=== PATIENT | male | born 1960 | race Caucasian/White ===

== ENCOUNTER 2022-07-14 09:57 | Outpatient (CLI) | payer BC, SELFPAY ==
[2022-07-14 10:03] VITALS: PULSE 100; RESP 16; TEMP 36.8; O2SAT 95; BMI 30.7
--- NOTE | 2022-07-14 10:15 | ED.GENADULT ---
HPI - General Adult General Chief complaint: Ear/Nose/Throat Problem Stated complaint: Foreign object in throat Time Seen by Provider: 07/14/22 10:06 History of Present Illness HPI narrative: This 62-year-old male comes in reporting an inability to swallow since last night. He ate some meat and feels that the food is stuck down at the bottom of his esophagus. Since then he has been spitting up saliva. He has attempted to push this through by swallowing hard but was unsuccessful. He states that he has not had an episode quite like this in the past but has had some dyspepsia a and reflux symptoms previously. Related Data Home Medications Medication Instructions Recorded Confirmed atorvastatin 40 mg tablet mg 07/14/22 Allergies Allergy/AdvReac Type Severity Reaction Status Date / Time No Known Drug Allergies Allergy Verified 07/14/22 10:05 Review of Systems Status of ROS: Reports: 10 or more systems reviewed and unremarkable except as noted in History and below Narrative: Constitutional: No fevers, no weight gain or loss. Eyes: No discharge. No vision changes. HENT: No congestion, no sore throat, no ear pain. Cardiovascular: No chest pain, no palpitations. Respiratory: No shortness of breath, no wheezes, no cough. Gastrointestinal: No abdominal pain, no diarrhea. Unable to swallow and frequently spitting up saliva. Genitourinary: No dysuria, no hematuria. Musculoskeletal: Normal range of motion. Skin: No rashes, no pruritis. Neurological: No dizziness, weakness, sensory change, speech change. Endo/Heme/Allergies: No bruising or bleeding. No polydipsia. Pysch: no suicidality, no anxiety, no insomnia. All other systems reviewed and are negative. PFSH PFS Social History Smoking Status: Never smoker Do you use any of these nicotine containing products: None Second hand tobacco smoke exposure: No How often do you have a drink containing alcohol: never How often do you have six or more drinks on one occasion: Never AUDIT-C Alcohol total score: 0 Non-prescribed substance use: denies use service: No Exam Narrative: Exam Narrative: Constitutional: Well-developed, well-nourished. Frequently spitting up saliva. HEENT: Normocephalic, atraumatic. Neck: Normal range of motion. Nontender. Supple. Heart: Intact distal pulses. Lungs: No chest discomfort. No wheezes, rhonchi, or rales. Abdomen: Nontender. Back: Normal range of motion. Extremities: Normal range of motion. No injury. Skin: Intact. No rash. Warm. No erythema or pallor. Neurologic: No altered sensation. No weakness. Alert and oriented. Psychiatric: No suicidality. No anxiety or depression. No insomnia. Nursing notes and vitals signs are reviewed. Const: Vital Signs, click to edit/add: Vital Signs - 24 hr 07/14/22 10:03 Temperature 98.3 F Pulse Rate [Left P ulse Oximeter] 100 Respiratory Rate 16 Pulse Oximetry 95 Oxygen Delivery Me thod Room Air Course Vital Signs Vital signs: Initial Vital Signs Temperature 98.3 F 07/14/22 10:03 Temperature Source Temporal Artery Scan 07/14/22 10:03 Pulse Rate 100 07/14/22 10:03 Pulse Rhythm 07/14/22 10:03 Pulse Strength 3+ Normal 07/14/22 10:03 Respiratory Rate 16 07/14/22 10:03 Pulse Oximetry 95 07/14/22 10:03 Oxygen Delivery Method 07/14/22 10:03 Vital Signs Temperature 98.3 F 07/14/22 10:03 Pulse Rate 100 07/14/22 10:03 Respiratory Rate 16 07/14/22 10:03 Pulse Oximetry 95 07/14/22 10:03 Oxygen Delivery Method 07/14/22 10:03 Temperature 98.3 F 07/14/22 10:03 Pulse Rate 100 07/14/22 10:03 Respiratory Rate 16 07/14/22 10:03 Pulse Oximetry 95 07/14/22 10:03 Oxygen Delivery Method 07/14/22 10:03 Medical Decision Making [facility] Narrative Medical decision making narrative: This patient comes in with an inability to swallow due to food bolus in the lower esophagus. An IV was established and he did receive 1 mg of glucagon. I spoke with endoscopy center and they are able to fit him into the schedule to correct this problem. He is discharged to endoscopy and will be sent home from there. Discharge Plan Discharge Clinical Impression: Bolus impaction of digestive tract Patient Disposition: Home w/ Parent or Adult Condition: Unchanged
[2022-07-14] MEDS: GLUCAGON,HUMAN RECOMBINANT 1 MG/ML VIAL IV (10:38)
== END 2022-07-14 23:59 | disposition home or self-care (01) ==
LOC: ED 10:29 → SS 11:51 → ED 09-01 10:46
PROVIDERS: Emergency Provider Emergency Medicine Emergency Medical Services; Visit Provider Internal Medicine
DX: T18.128A Food in esophagus causing other injury, initial encounter (principal); R13.10 Dysphagia, unspecified
CPT/HCPCS: 43247; 99284; 99285; J1610; J2250; J3010

== ENCOUNTER 2022-10-27 10:04 | Outpatient (CLI) | payer BC, SELFPAY | END 2022-10-27 10:05 | disposition home or self-care (01) | PROVIDERS: PCP Internal Medicine; Visit Provider Internal Medicine | DX: R13.10 Dysphagia, unspecified (principal); K44.9 Diaphragmatic hernia without obstruction or gangrene | CPT/HCPCS: 43239; 88305; 88342; J2250; J3010 ==

== ENCOUNTER 2023-12-20 18:48 | Emergency (ER) | payer MEDICARE, BC, SELFPAY ==
[2023-12-20 18:50] VITALS: BP 157/85; PULSE 79; RESP 18; TEMP 36.6; O2SAT 99
--- NOTE | 2023-12-20 18:58 | ED.GENADULT ---
HPI - General Adult General Time Seen by Provider: 18:58 Date Seen: 12/20/23 Chief complaint: Skin/Abscess/Foreign Body Stated complaint: food stuck in throat Time Seen by Provider: 12/20/23 18:55 Source: patient and RN notes reviewed Mode of arrival: ambulatory Limitations: no limitations History of Present Illness HPI narrative: This 63-year-old male is coming in with food bolus stuck in his throat. He ate a hot dog about 330, got a piece stuck. He is spitting his saliva back up. He is attempt drinking liquids in the come right back up. He is in no significant pain, just feels a discomfort in his throat where he feels this. He is breathing easily, no complications with his respiratory status. He notes he had this a couple of years ago, had endoscopy here with a pushed it through. He sounds as if he had a repeat endoscopy about 6 months later. He may have had dilation at some point, he is talking about they did something so that it would not get stuck anymore. Reviewed with him if he had had a prior dilation, patient sometimes can start to narrow back down and require further interventions. He does have GERD listed in his problem list. Also noted to be on omeprazole but he states he is no longer taking this. Related Data Home Medications ?Medication ?Instructions ?Recorded ?Confirmed atorvastatin 40 mg tablet mg 07/14/22 07/31/22 Previous Rx's ?Medication ?Instructions ?Recorded omeprazole 20 mg capsule,delayed 20 mg PO BID Esophageal 07/31/22 release Obstruction #60 caps Allergies Allergy/AdvReac Type Severity Reaction Status Date / Time No Known Drug Allergies Allergy Verified 07/31/22 12:41 Review of Systems Narrative: As per HPI. PFS PFS Medical History (Updated 12/20/23 @ 20:06 by Shital Kendrick MD) Bolus impaction of digestive tract GERD (gastroesophageal reflux disease) ?K21.9 - Gastro-esophageal reflux disease without esophagitis (ICD-10) Social History Smoking Status: Former smoker Do you use any of these nicotine containing products: None Second hand tobacco smoke exposure: No How often do you have a drink containing alcohol: never How often do you have six or more drinks on one occasion: Never AUDIT-C Alcohol total score: 0 Non-prescribed substance use: denies use service: No Exam Const: Vital Signs, click to edit/add: Vital Signs - 24 hr 12/20/23 18:50 12/20/23 19:28 Temperature 97.8 F Pulse Rate [Left P ulse Oximeter] 79 78 Respiratory Rate 18 Blood Pressure [Ri ght Upper Arm] 157/85 H Pulse Oximetry 99 97 Oxygen Delivery Me thod Room Air Room Air Patient is alert, interactive, no apparent distress. Spitting his saliva into an emesis bag. Face atraumatic, able to speak in complete sentences, no difficulty with speech. Neck is supple, no adenopathy or masses. Lungs are clear, good air entry, no wheezing crackles. CV regular rate and rhythm no murmur. Documenting provider has reviewed patient's vital signs: yes Course Course ED Course: Patient is aware that there is no endoscopy here at this hour. Will establish an IV, have him on monitoring and try a 1 mg IV glucagon, will also try the effervescent granules used in Radiology. If these maneuvers do not work, will discuss options with him at that point which does include transfer to a facility tonight where they can do endoscopy. Reevaluation(s) Time of Reevaluation #1: 20:02 Reevaluation #1: This has resolved, patient was able to drink a full can of Coke and full couple water, feels are going down easily. We will get him scheduled for an outpatient EGD. Vital Signs Vital signs: Initial Vital Signs Temperature 97.8 F 12/20/23 18:50 Temperature Source Temporal Artery Scan 12/20/23 18:50 Pulse Rate 79 12/20/23 18:50 Pulse Rhythm Regular 12/20/23 18:50 Pulse Strength 3+ Normal 12/20/23 18:50 Respiratory Rate 18 12/20/23 18:50 Blood Pressure 157/85 H 12/20/23 18:50 Blood Pressure Mean 109 H 12/20/23 18:50 Blood Pressure Position Sitting 12/20/23 18:50 Pulse Oximetry 99 12/20/23 18:50 Oxygen Delivery Method Room Air 12/20/23 18:50 Vital Signs Temperature 97.8 F 12/20/23 18:50 Pulse Rate 79 12/20/23 18:50 Respiratory Rate 18 12/20/23 18:50 Blood Pressure 157/85 H 12/20/23 18:50 Pulse Oximetry 99 12/20/23 18:50 Oxygen Delivery Method Room Air 12/20/23 18:50 Temperature 97.8 F 12/20/23 18:50 Pulse Rate 78 12/20/23 19:28 Respiratory Rate 18 12/20/23 18:50 Blood Pressure 157/85 H 12/20/23 18:50 Pulse Oximetry 97 12/20/23 19:28 Oxygen Delivery Method Room Air 12/20/23 19:28 Medications Administered Medications: Discontinued Medications Generic Name Dose Route Start Last Admin Trade Name Gaby PRN Reason Stop Dose Admin Glucagon 1 mg 12/20/23 19:02 12/20/23 19:17 Glucagon,Human Recombinant 1 Mg/Ml Vial IV 12/20/23 19:03 1 mg ONCE ONE Administration Simethicone/Sodium Bicarb/Citric Ac 1 each 12/20/23 19:03 12/20/23 19:17 Simethicone/Sod Bicarb/Cit Ac 1 Each Gran.Ef.Pk PO 12/20/23 19:04 1 each ONCE ONE Administration Discharge Plan Discharge Clinical Impression: Bolus impaction of digestive tract Patient Disposition: Home, Self-Care Condition: Stable Instructions: Food Impaction (ED) Additional Instructions: For at least the next few days, need to avoid foods that can get stuck such as meats and bread. Eat very small bites, chew year food thoroughly, try to stick to a soft diet right now. I have put an order for a repeat EGD in for you, the Endoscopy Center will call you to get this scheduled. Activity Level: Activity as Tolerated Prescriptions: No Action omeprazole 20 mg capsule,delayed release(DR/EC) 20 mg PO BID Qty: 60 1RF atorvastatin 40 mg tablet Patient Comments: TAKE ONE TABLET BY MOUTH ONE TIME DAILY Follow Up/Referrals: Ronak Mendosa MD [Primary Care Provider] - Stand Alone Forms: Eyewitness Surveillance Info Instructions
[2023-12-20] MEDS: GLUCAGON,HUMAN RECOMBINANT 1 MG/ML VIAL IV (19:17)
[2023-12-20] MEDS: SIMETHICONE/SOD BICARB/CIT AC 1 EACH GRAN.EF.PK PO (19:17)
[2023-12-20 19:28] VITALS: PULSE 78; O2SAT 97
--- OUTSIDE RECORDS SUMMARY | 2023-12-20 19:28 | XMS_ITS | Clinical Summary ---
Author Organization [facility] Address [place], [place] [address] Care Team Providers Care Financial Aid Administrator Name Role Phone Rob Rodriguez DO Primary Care Provider [phone] Allergies No known active allergies Medications Medication Sig Dispensed Refills Start Date End Date Status naproxen (ALEVE) 220 mg tablet Take 1 tablet by mouth 2 times daily with meals. 0 10/07/2015 Active diphenhydrAMINE (BENADRYL) 25 mg capsule Take 1 capsule by mouth every 4 hours if needed. 0 08/06/2018 Active acetaminophen (TYLENOL EXTRA STRGTH) 500 mg tablet Take 1 tablet by mouth every 6 hours if needed. Max acetaminophen dose: 4000mg in 24 hrs. 0 09/09/2018 Active omeprazole (PRILOSEC) 20 mg Delayed-Release capsule Take 20 mg by mouth. 09/17/2022 Active GaviLyte-G 236-22.74-6.74 -5.86 gram suspension Drink 2 liters the day before colonoscopy and 2 liters 6 hours before colonoscopy appointment* 02/01/2023 Active atorvastatin (LIPITOR) 40 mg tabletIndications:Hy perlipidemia, unspecified hyperlipidemia type Take 1 Tablet (40 mg) by mouth once daily. 90 Tablet 3 03/19/2023 Active Active Problems Problem Noted Date Diagnosed Date Primary osteoarthritis of right knee 11/07/2018 Overview: July 2019: Cortisone injection by Dr. Altamirano. Very good benefit for 4+ months. January 2020: Repeat cortisone injection by Dr. Altamirano. November 2020: Repeat right knee cortisone injection by Dr. Altamirano. May 2021: Repeat right knee cortisone injection by Dr. Altamirano. 70% improvement. January 2022: Repeat Right knee cortisone injection by Dr. Altamirano. 65% November 2022: Repeat Right knee cortisone injection by Dr. Altamirano. Aug 21, 2023: Repeat Right knee cortisone injection by Dr. Altamirano, 90% pain relief at 10 days. Prediabetes 11/10/2015 Post-traumatic osteoarthritis of right ankle BPH (benign prostatic hyperplasia) 11/03/2013 Left inguinal hernia 11/12/2012 Healthcare maintenance Hyperlipidemia Family history of colon cancer Overview: Colonoscopy 01/2023 diverticulosis, repeat in 5 years History of hepatitis B Overview: 1982 not a carrier Seasonal allergies Immunizations Name Administration Dates Next Due COVID-19 vaccine (Moderna 100mcg/0.5mL) PF, MDV 11/16/2020,10/19/2020 Influenza RIV4 (Age 18+ Year s) PRESERV FREE 05/01/2022,05/06/2021 Influenza Virus, Unspecified 05/23/2014 Influenza, IIV3 (Age >=3 years) 06/05/2013,04/27 Influenza, IIV4 04/01/2020, 8,05/07/2017,2015 Influenza, IIV4 (=>6mos) MDV 04/29/2019 Td (Age >=7 Years) 09/01/2005 Tdap 11/04/2014 Zoster (Shingrix-RZV, recombinant) 04/04/2019, Family History Medical History Relation Name Comments Cancer-colon Brother 1 Wili dx'd 57 Heart Disease Brother 2 Prieto Heart Disease Brother 3 Tres at 64 Alcohol/Drug Father Wili Cancer-colon Father Wili Unknown Maternal Grandfather Isidoro Unknown Maternal Grandmother Ivy Cancer-pancreatic Mother Izzy Heart Disease Mother Izzy pacemaker, hea rt failure Heart failure Mother Izzy Hypertension Mother Izzy Pancreatitis Mother Izzy Stroke Mother Izzy Heart failure Other niece Heart Disease Paternal Grandfather Jovon Unknown Paternal Grandmother Adelaide Cancer-colon Sister 1 Marylou dx'd age 49 Blood Disease Sister 2 May leukemia No Known Problems Sister 3 Lashanda No Known Problems Sister 4 Anh No Known Problems Sister 5 Saida No Known Problems Sister 6 Dilma Relation Name Status Comments Brother 1 Wili Alive Brother 2 Prieto Alive Brother 3 Tres (Age 64) Brother 4 Ayan Alive Father Wili (Age 85) Maternal Grandfather Isidoro (Age 90) Maternal Grandmother Ivy (Age near 8 0) Mother Izzy (Age 92) Hospice 20 18 age 92 abd [place] possible cancer Other niece Paternal Grandfather Jovon (Age 40s) Paternal Grandmother Adelaide (Age 50s?) Sister 1 Marylou Alive Sister 2 May (Age 55) Sister 3 Lashanda Alive Sister 4 Anh Alive Sister 5 Saida Alive Sister 6 Dilma Alive Social History Tobacco Use Types Packs/Day Years Used Date Smoking Tobacco: Former Cigarettes 0.5 15 0 07/23/1973 - 07/23/1988 Smokeless Tobacco: Never Tobacco Cessation:Counseling Given: Yes Alcohol Use Standard Drinks/Week Comments Yes 4 (1 standard drink = 0.6 oz pur e alcohol) PHQ-2 Answer Date Recorded PHQ-2 TOTAL SCORE 0 03/19/2023 Exercise Vital Sign Answer Date Recorde d Days of Exercise per Week 0 days 2018 Minutes of Exercise per Session Not on file 01/02/2019 Social Connections Answer Date Recorded Frequency of Communication with Friends and Fami ly Not on file 10/22/2023 Financial Resource Strain Answer Date R ecorded Difficulty of Paying Living Expenses 3 10/13/2022 Difficulty of Paying Living Expenses Not on file 10/13/2022 Food Insecurity Answer Date Recorded Worried About Running Out of Food in the Last Ye ar 1 10/13/2022 Transportation Needs Answer Date Record ed Lack of Transportation (Medical) 1 10/13/2022 Housing Stability Answer Date Recorded Unable to Pay for Housing in the Last Year 1 10/13/2022 Sex and Gender Information Value Date Recorded Sex Assigned at Male 10/16/2020 6:14 PM CDT Gender Identity Male 10/16/2020 6:14 PM CDT Sexual Orientation Lesbian or [place] 10/16/2020 6: 14 PM CDT Obstetrics History Last Filed Vital Signs Vital Sign Reading Time Taken Comments Blood Pressure 129/88 08/21/2023 9:38 AM ENGINEERING ILLUSTRATOR Pulse 68 08/21/2023 9:38 AM ENGINEERING ILLUSTRATOR Temperature 36.7 ??C (98.1 ??F) 01/07/2021 10:19 AM C DT Respiratory Rate 16 02/09/2023 9:30 AM CDT Oxygen Saturation 97% 08/21/2023 9:38 AM ENGINEERING ILLUSTRATOR Inhaled Oxygen Concentration - - Weight 98 kg (216 lb) 08/21/2023 9:38 AM ENGINEERING ILLUSTRATOR Height 179.1 cm (5' 10.5) 03/19/2023 9:51 AM CD T Body Mass Index 30.55 03/19/2023 9:51 AM CDT Plan of Treatment Health Maintenance Due Date Last Done Comments AAA screening age 65-74 2023 Medicare Wellness for age 65+ 2023 Pneumococcal series for age 65+ (1 of 1 - PCV) 2023 BMI (ht and wt on same day) for age 18+ 03/19/2024 03/19/2023, 05/23/2022, 03/17/2022, Additional history exists Depression screening for age 12+ 03/19/2024 03/19/2023, 03/17/2022, 03/16/2021, Additional history exists Influenza for age 65+ 03/23/2024 05/01/2022 , 05/06/2021, 04/01/2020, Additional history exists Tetanus booster 11/04/2024 11/04/2014, 09/01/2005 Colonoscopy through age 75 02/10/202802/09, 02/09/2023, 02/09/2023, Additional history exists Lipids for age 45-75 03/19/2028 03/19/2023, 03/17/2022, 03/16/2021, Additional history exists Tdap Completed 11/04/2014 Zoster (shingles) series for age 50+ Completed 04/04/2019, 01/02/2019 Hepatitis C screening for ag e 18-79 Completed 03/08/2020 HIV for age 15-65 Completed 03/19/2023 COVID-19 vaccine series Completed 04/30/20 23, 05/01/2022, 11/16/2020, Additional history exists Procedures Procedure Name Priority Date/Time Associated Diagnosis Comments LC HIV-1/O/2, 4TH GENERATION Routine 03/19/2023 10:29 AM CDT Screening for HIV (human immunodeficiency virus) LIPID PANEL Routine 03/19/2023 10:29 AM CDT Hyperlipidemia, unspecified hyperlipidemia type COLONOSCOPY SCREENING Routine 02/09/2023 7:50 AM CDT Screening for colon cancer ANTI HCV Routine 03/08/2020 11:33 AM CDT Need for hepatitis C screening test from Last 3 Months or Most Recently Relevant to Health Maintenance Results * LC HIV-1/O/2, 4TH GENERATION (03/19/2023 10:29 AM CDT) HIV Scr 4th Gen Non Reactive Non Reactive 03/21/2023 10:06 PM CDT [facility] Comment: HIV Negative HIV-1/HIV-2 antibodies and HIV-1 p24 antigen were NOT detected. There is no laboratory evidence of HIV infection. Blood BLOOD SPECIMEN / Unknown Venipuncture / Unknown 03/19/2023 10:29 AM CDT 03/19/2023 10:31 AM CDT Narrative [facility] ([facility]) - 03/21/2023 10:06 PM CDT Performed at: ??[address] ??[id number] Rehab Spec: Lucho Cordova MD, Phone: ??[phone] Rob Rodriguez DO LABORATORY [facility] ([facility]) [address] [place] [address] * LIPID PANEL (03/19/2023 10:29 AM CDT) CHOLESTEROL,TOTAL 184 100 - 199 mg/dL 03/19/2023 5:46 PM CDT [facility] Comment: Cholesterol, Total Reference Ranges Desirable <200 mg/dL Borderline 200-239 mg/dL High >=240 mg/dL TRIGLYCERIDES 86 <150 mg/dL 03/19/2023 5:46 PM CDT [facility] HDL CHOLESTEROL 46 >40 mg/dL 5:46 PM CDT [facility] NON-HDL CHOLESTEROL 138 <145 mg/dl 03/19/2023 5:46 PM CDT [facility] CHOL/HDL RATIO 4.00 <4.50 03/19/2023 5:46 PM CDT [facility] LDL CHOLESTEROL 121 <=130 mg/dL 03/19/2023 5:46 PM CDT [facility] VLDL CHOLESTEROL 17 <=30 mg/dL 03/19/2023 5:46 PM CDT [facility] PROVIDER ORDERED STATUS RANDOM 03/19/2023 5:46 PM CDT [facility] Blood BLOOD SPECIMEN / Unknown Venipuncture / Unknown 03/19/2023 10:29 AM CDT 03/19/2023 10:31 AM CDT Rob Rodriguez DO CHEMISTRY [facility] [address] [place] [address], * COLONOSCOPY (02/09/2023 8:01 AM CDT) 02/09/2023 8:01 AM CDT Narrative Transcriptions Jimbo Navas MD - 02/09/2023 9:09 AM CDT Patient Name: Brian Rae Procedure Date: 02/09/2023 Gender: Male Date of : 1960 Admit Type: Outpatient Procedure: Colonoscopy Proceduralist: Jimbo Navas MD , Anne Torres (Nurse), Susu Nash (Nurse) Referring MD: Rob Rodriguez Indications/Pre-Op Diagnosis: Screening patient at increased risk: Family history of colorectal cancer in multiple 1st-degree relatives, Last colonoscopy:February 2017 Medications: Fentanyl 100 micrograms IV, Midazolam 4 mgIV, The level of sedation administered wasmoderate Procedure Description: The patient had risks, benefits and alternatives explained to andgave informed consent. The patient had a stable cardiopulmonary status and judged an adequate candidate for conscious sedation. The endoscope [id number] was passed through the anus andadvanced to the cecum, identified by appendiceal orifice and ileocecal valve.The colonoscopy was performed without difficulty. The patient toleratedthe procedure well. The quality of the bowel preparation was good. The ileocecal valve, appendiceal orifice, and rectum were photographed. Complications: No immediate complications. Estimated Blood Loss & Specimen: Estimated blood loss: none. Specimen collected - None Findings: The perianal and digital rectal examinations were normal. A few small-mouthed diverticula were found in the sigmoid colon. The exam was otherwise without abnormality on direct and retroflexion views. Impressions/Post-Op Diagnosis: - Diverticulosis in the sigmoid colon. - The examination was otherwise normal on direct and retroflexionviews. - No specimens collected. Recommendation: - Patient has a contact number available for emergencies. The signsand symptoms of potential delayed complications were discussed with the patient. Return to normal activities tomorrow. Written discharge instructions were provided to the patient. - Resume previous diet. - Continue present medications. - Repeat colonoscopy in 5 years for screening purposes. Moderate Sedation: A time out was performed before the procedure. Moderate (conscious) sedation was administered by the endoscopy nurse and supervised bythe endoscopist. The following parameters were monitored: oxygensaturation, heart rate, blood pressure, EKG, CO2, respiratory rate, adequacy of pulmonary ventilation and reponse to care. Please refer to the patient's medical record flowsheets and nursing notes for moderate sedation details. Total physician intraservice time was 12 minutes. Jimbo Navas MD 02/09/2023 9:09:18 AM This report has been signed electronically. Note Initiated On: 02/09/2023 8:01 AM Procedure Code(s): --- Professional --- 04294, Colonoscopy, flexible; diagnostic, including collection of specimen(s) bybrushing or washing, when performed (separateprocedure) Diagnosis Code(s): --- Professional --- Z80.0, Family history of malignant neoplasmof digestive organs K57.30, Diverticulosis of large intestine without perforation or abscess withoutbleeding CPT copyright 2021 [employer]. All rights reserved. The codes documented in this report are preliminary and upon collections attorney reviewmay be revised to meet current compliance requirements. Scope In: 8:48:34 AM Scope Withdrawal Time 0 hours 6 minutes 18 seconds Scope Out: 8:58:45 AM Jimbo Navas MD PROCEDURE ORD * ANTI HCV (03/08/2020 11:33 AM CDT) HEPATITIS C ANTIBODY Non-React freddie Non-React freddie 03/08/2020 10:38 PM CDT [facility] Comment:Antibodies to HCV no t detected; does not exclude the possibility of exposure to HCV. Blood BLOOD SPECIMEN / Unknown Venipuncture / Unknown 03/08/2020 11:33 AM CDT 03/08/2020 11:35 AM CDT Fareed Escobar MD SEND OUTS [facility] [address] [place] [address], from Last 3 Months or Most Recently Relevant to Health Maintenance Care Teams Financial Aid Administrator Relationship Specialty Start Date End Date Rob Rodriguez DO [address] [place] [address] PCP - General Family Practice 11/02/22
--- OUTSIDE RECORDS SUMMARY | 2023-12-20 19:28 | XMS_ITS | Continuity of Care Document ---
Author Organization [facility] Address [address] [address] [place] [address] Phone Care Team Providers Care Pairer Inspector Name Role Phone Darin Stearns MD Unavailable Unavailabl e Medications Medication Instructions Dosage Effective Dates (start - stop) Status Comments Lipitor 40 mg tablet take 1 tablet by or al route every day 40 MG - Active pantoprazole 40 mg tablet,delayed release take 1 tablet by oral route every day 40 MG - Active Aleve 220 mg tablet take 2 tablet by ora l route every 12 hours as needed 440 MG - Active Benadryl 25 mg capsule take 1 capsule by oral route every 4 - 6 hours as needed 25 MG - Active Procedures Procedure Date Colonoscopy Flex; W/bx 1/mx Level Iv-surg Path Gross/micro 17 Colonoscopy Flex; Dx (mar) 11 Colonoscopy Flex; Dx (mar Advance Directives Directive Yes / No Effective Date File Name No Information Encounters Encounter Description Practice Location Reason(s) For Visit Diagnoses Date Provider Providers Copied on Encounter [facility], [address] [address], [place], [id number], [place] tel:[phone] [facility] No Information 3 Jim Webster. [address] [facility], [place], [place], [id number], [place]. tel:[phone] [facility], [address] [address], [place], [id number], [place] tel:[phone] [facility] Family history of colon cancerColorectal polyp detected on colonoscopyInter nal hemorrhoidsEncou nter for screening for malignant neoplasm of colonOther hemorrhoidsPolyp of colonFamily history of malignant neoplasm of digestive organs 7 Micah Guerrier. [address] [facility], [facility] [address], [place], [address], [place]. tel:[phone] Referring Provider: Referral Self, USE FOR SELF REFERRALS. [facility], [address] [address], [place], [place], [id number], [place] tel:[phone] [facility] Colon Cancer ScreeningFamily Hx GI Tract CancerColon Cancer ScreeningFamily Hx GI Tract Cancer 1 Wilfredo Mak. [address] [facility], [facility] [address], [place], [place], [id number], [place]. tel:[phone] Referring Provider: Fareed Escobar MD, [facility] [facility] [address], [place], [address]. tel:[phone] [facility], [address] [address], [facility] [place] [address], [place] tel:[phone] [facility] 6 No Information Referring Provider: Fareed Escobar MD, [address] [facility] [address], [place], [address]. tel:[phone] Family History Family Member Type Diagnosis Age At Onset Sister Problem (finding) Thyroid disorder Sister Problem (finding) Colon polyps Brother Problem (finding) cancer of colon (Cause Of ) Brother Problem (finding) Alive and well Mother Problem (finding) GERD Brother Problem (finding) Colon polyps Sister Problem (finding) cancer of colon (Cause Of ) Father Problem (finding) Brother Problem (finding) Sister Problem (finding) Alive and well Father Problem (finding) cancer of colon (Cause Of ) Sister Problem (finding) Father Problem (finding) Colon polyps Payers Payer name Insurance type Covered republican ID Authoriza tion(s) [facility] [id number] Social History Type Description Quantity Date Captured Comments Sex Male Smoking Status No Information Chief Complaint And Reason For Visit No Information Reason For Referral Reason For Referral No Information History Of Present Illness Encounter Date Complaint History Of Prese nt Illness No Information Functional Status Date Functional Assessmen t No Information Instructions Date Instruction Additional Infor mation No Information Assessments Type Assessment Date No Information Patient Care Teams Name Effective Dates (start - stop) Status Members No Information
[2023-12-20 20:13] VITALS: PULSE 70; O2SAT 96
== END 2023-12-20 20:14 | disposition home or self-care (01) ==
PROVIDERS: Emergency Provider Family Medicine; PCP Internal Medicine
DX: T18.9XXA Foreign body of alimentary tract, part unspecified, initial encounter (principal)
CPT/HCPCS: 94761; 96374; 99283; 99284; J1610

== ENCOUNTER 2023-12-27 08:42 | Outpatient (CLI) | payer MEDICARE, BC, SELFPAY ==
--- OUTSIDE RECORDS SUMMARY | 2023-12-27 08:48 | XMS_ITS | Clinical Summary ---
Author Organization [facility] Address [place], [place] [address] Care Team Providers Care Wood Type Finisher Name Role Phone Rob Rodriguez DO Primary Care Provider [phone] Allergies No known active allergies Medications Medication [...] Comments Blood Pressure 129/88 08/21/2023 9:38 AM QUALITY CONTROL COORDINATOR Pulse 68 08/21/2023 9:38 AM QUALITY CONTROL COORDINATOR Temperature 36.7 ??C (98.1 ??F) 01/07/2021 10:19 AM C DT Respiratory Rate 16 02/09/2023 9:30 AM CDT Oxygen Saturation 97% 08/21/2023 9:38 AM QUALITY CONTROL COORDINATOR Inhaled Oxygen Concentration - - Weight 98 kg (216 lb) 08/21/2023 9:38 AM QUALITY CONTROL COORDINATOR Height 179.1 cm (5' 10.5) 03/19/2023 9:51 [...] Reactive Non Reactive 03/21/2023 10:[address] [facility] Comment: HIV Negative HIV-1/HIV-2 antibodies and HIV-1 p24 antigen were NOT detected. There is no laboratory evidence of HIV infection. Blood BLOOD SPECIMEN / Unknown Venipuncture / Unknown 03/19/2023 10:29 AM CDT 03/19/2023 10:31 AM CDT Narrative [facility] ([facility]) - 03/21/2023 10:06 PM CDT Performed at: ??[address] ??[id number] Front Desk Auxiliary: Lucho Cordova MD, Phone: ??[phone] Rob Rodriguez DO LABORATORY [facility] ([facility]) [address] [place] [address] * LIPID PANEL (03/19/2023 10:29 AM CDT) CHOLESTEROL,TOTAL 184 100 - 199 mg/dL 03/19/2023 5:46 PM CDT [facility] Comment: Cholesterol, Total Reference Ranges Desirable <200 mg/dL Borderline 200-239 mg/dL High >=240 mg/dL TRIGLYCERIDES 86 <150 mg/dL 03/19/2023 5:46 PM CDT [facility] HDL CHOLESTEROL 46 >40 mg/dL 5:46 PM CDT [facility] NON-HDL CHOLESTEROL 138 <145 mg/dl 03/19/2023 5:46 PM CDT [facility] CHOL/HDL RATIO 4.00 <4.50 03/19/2023 5:46 PM CDT [facility] LDL CHOLESTEROL 121 <=130 mg/dL 03/19/2023 5:46 PM CDT [facility] VLDL CHOLESTEROL 17 <=30 mg/dL 03/19/2023 5:46 PM CDT [facility] PROVIDER ORDERED STATUS RANDOM 03/19/2023 5:46 PM CDT [facility] Blood BLOOD SPECIMEN / Unknown Venipuncture / Unknown 03/19/2023 10:29 AM CDT 03/19/2023 10:31 AM CDT Rob Rodriguez DO CHEMISTRY [facility] [address] [place] [address], * COLONOSCOPY (02/09/2023 8:01 AM CDT) 02/09/2023 [...] adequate candidate for conscious sedation. The endoscope [id number] was passed through the anus andadvanced to [...] 8:01 AM Procedure Code(s): --- Professional --- 51884, Colonoscopy, flexible; diagnostic, including collection of specimen(s) bybrushing or washing, when performed (separateprocedure) Diagnosis Code(s): --- Professional --- Z80.0, Family history of malignant neoplasmof digestive organs K57.30, Diverticulosis of large intestine without perforation or abscess withoutbleeding CPT copyright 2021 [employer]. All rights reserved. The codes documented in this report are preliminary and upon retail loss prevention officer reviewmay be revised to meet current compliance requirements. Scope In: 8:48:34 AM Scope Withdrawal Time 0 hours 6 minutes 18 seconds Scope Out: 8:58:45 AM Jimbo Navas MD PROCEDURE ORD * ANTI HCV (03/08/2020 11:33 AM CDT) HEPATITIS C ANTIBODY Non-React freddie Non-React freddie 03/08/2020 10:38 PM CDT [facility] Comment:Antibodies to HCV no t detected; does not exclude the possibility of exposure to HCV. Blood BLOOD SPECIMEN / Unknown Venipuncture / Unknown 03/08/2020 11:33 AM CDT 03/08/2020 11:35 AM CDT Fareed Escobar MD [facility] [address] [place] [address], from Last 3 Months or Most Recently Relevant to Health Maintenance Care Teams Wood Type Finisher Relationship Specialty Start Date End Date Rob Rodriguez DO [address] [place] [address] PCP - General Family Practice 11/02/22
--- NOTE | 2023-12-27 09:53 | W.ANESCHARGE ---
Anesthesia Charges Start Date/Time Anesthesia Start Date: 12/27/23 Anesthesia Start Time: 10:00 Stop Date/Time Anesthesia Stop Date: 12/27/23 Anesthesia Stop Time: 10:22
--- NOTE | 2023-12-27 10:24 | W.ANESCHARGE ---
Anesthesia Charges Start Date/Time Anesthesia Start Date: 12/27/23 Anesthesia Start Time: 10:00 Stop Date/Time Anesthesia Stop Date: 12/27/23 Anesthesia Stop Time: 10:22
== END 2023-12-27 08:43 | disposition home or self-care (01) ==
LOC: OP CLINIC 08:46
PROVIDERS: PCP Student in an Organized Health Care Education/Training Program; Visit Provider Surgery
DX: R13.10 Dysphagia, unspecified (principal); K22.81 Esophageal polyp; K31.89 Other diseases of stomach and duodenum
CPT/HCPCS: 00731; 43239; 88305; 88342; J2704

== ENCOUNTER 2024-06-02 11:09 | Day surgery (SDC) | payer MEDICARE, BC, SELFPAY ==
[2024-06-02] VITALS (21 sets, daily range): BP systolic 106–136; BP diastolic 56–88; PULSE 41–68; RESP 14–18; TEMP 35.6–36.7; O2SAT 95–100; BMI 29.8
[2024-06-02] MEDS: LACTATED RINGERS 1000 ML 1,000 ML 100 ML IV (11:20)
--- NOTE | 2024-06-02 11:48 | W.PM.H&PU ---
History & Physical Update History & Physical Update H&P Reviewed and patient assessed: No changes noted
--- NOTE | 2024-06-02 11:49 | CRLHL7_ITS ---
For Patients: As a result of the Cures Act, medical imaging exams and procedure reports are released immediately into your electronic medical record. You may view this report before your referring provider. If you have questions, please contact your health care provider. Indication: Postop Technique: Two views right knee Findings/Impression: Hardware from a right total knee arthroplasty is in satisfactory position. Bone alignment is normal. No sign of acute fracture. Postop changes are within normal limits. Dictated by Isidoro Pulido MD @ 06/03/2024 9:27:16 AM (Electronically Signed)
[2024-06-02] MEDS: OXYCODONE (CR) 10 MG TAB.ER.12H PO (12:20)
[2024-06-02] MEDS: ACETAMINOPHEN 500 MG TABLET 1000 MG PO ×2 (12:20→21:14)
[2024-06-02] MEDS: MIDAZOLAM HCL 1 MG/ML inj IVP (12:22)
[2024-06-02] MEDS: fentaNYL 100 MCG/2 ML inj IVP (12:22)
[2024-06-02] MEDS: SODIUM CHLORIDE 0.9 % (FLUSH) 10 ML SYRINGE IVF (12:28)
--- NOTE | 2024-06-02 12:28 | W.PM.NB ---
Nerve Block Nerve Block Time Seen by Provider: 12:25 Date Seen: 06/02/24 Type of block requested by surgeon for post-operative analgesia: adductor canal Side: right Time out performed: Yes Verification of patient name: Yes Verification of date of : Yes Site marking: site marked Name of person performing procedure: Matt Continuous monitoring Was continuous monitoring of O2 sat, B/P, cardiac catheterization technologist, recorded every 15 minutes?: Yes Procedure Checklist: sterile prep, needles and gloves Ultrasound guided. Images saved: Yes Medications given in 5ml increments after negative aspiration: Marcaine %: 0.25 mL: 15 Needle gauge: 20 Precedex (mcg): 25 Patient tolerated procedure well: Yes Block Charges Block Charge (with Pro Fee): Femoral Nerve Use of Ultrasound Machine for Block: Yes- US Guidance/pain block
--- NOTE | 2024-06-02 12:28 | W.PM.NB ---
Nerve Block Nerve Block Time Seen by Provider: 12:25 Date Seen: 06/02/24 Type of block requested by surgeon for post-operative analgesia: geniculars Side: right Time out performed: Yes Verification of patient name: Yes Verification of date of : Yes Site marking: site marked Name of person performing procedure: Matt Continuous monitoring Was continuous monitoring of O2 sat, B/P, letter of credit clerk, recorded every 15 minutes?: Yes Procedure Checklist: sterile prep, needles and gloves Ultrasound guided. Images saved: Yes Medications given in 5ml increments after negative aspiration: Marcaine %: 0.25 mL: 9 Needle gauge: 25 Patient tolerated procedure well: Yes Block Charges Block Charge (with Pro Fee): Genicular Nerve Block
--- NOTE | 2024-06-02 12:29 | W.ANESCHARGE ---
Anesthesia Charges Start Date/Time Anesthesia Start Date: 06/02/24 Anesthesia Start Time: 12:40 Stop Date/Time Anesthesia Stop Date: 06/02/24 Anesthesia Stop Time: 15:32
--- NOTE | 2024-06-02 12:29 | SUR.PREOP ---
TIME?OUT:?1220 PT/RN/MDA?VERIFICATION?OF?SURGICAL?SITE,?PROCEDURE,?AND?CONSENT OBTAINED?PRIOR?TO?INVASIVE?PROCEDURE.
[2024-06-02] MEDS: CEFAZOLIN 2 GM in 0.9 % SODIUM CHLORIDE Mini-bag 100 ML IVPB ×2 (12:49→19:45)
[2024-06-02] MEDS: TRANEXAMIC ACID 100 MG/ML INJ 1000 MG IV (12:51)
--- NOTE | 2024-06-02 15:03 | PM.ORPRC ---
Procedure Note Date of procedure: 06/02/24 Procedure: PREOPERATIVE DIAGNOSIS: 1. Right knee osteoarthritis, primary, severe POSTOPERATIVE DIAGNOSIS: 1. Right knee osteoarthritis, primary, severe PROCEDURE: 1. Right total knee arthroplasty - subvastus SURGEON: Hasmukh Dela Cruz MD. [employer] COOK HEAD: Boni Steinberg PA-C - Of note, a skilled certified anesthesiologist assistant was critical for this case to aid in patient positioning, tissue retraction, limb manipulation/positioning, and closure. ANESTHESIA: Spinal anesthetic IMPLANTS: DePuy J&J all cemented TKA - Attune PS femur size 9, size 8 tibia, 6 mm poly spacer, 30 mm patella TOURNIQUET: 100 minutes at 300 torr EBL: 50 ml COMPLICATIONS: None evident INDICATIONS: The patient is a pleasant 64-year-old male who has experienced severe right knee pain and difficulty bearing weight. Workup included x-rays which revealed severe osteoarthrosis in the knee. Given the deformity, the dysfunction, and the pain, as well as the failure of nonoperative management, recommendation was made for surgery. FINDINGS: Full-thickness chondral loss diffusely throughout all 3 compartments. Large tricompartmental osteophytosis. Large effusion upon entering the joint. Degenerative meniscus pathology both compartments. DESCRIPTION OF PROCEDURE: Following a thorough discussion of risks, benefits, and alternatives consent was obtained and the right knee was marked. The patient was brought to the operating room and placed supine on the operating table. Induction of anesthesia was undertaken. 2 g IV Ancef and 1 g tranexamic acid was administered within 1 hr of incision preoperatively. Proper time-out was performed identifying proper patient, site, procedure. The operative extremity was prepped and draped in the appropriate sterile fashion using ChloraPrep after the patient was positioned supine with all bony prominences well padded. A longitudinal, anterior, midline skin incision was made starting approximately 3cm proximal to the superior pole of the patella and advanced distal to the tibial tubercle. A subvastus approach was utilized. A medial subperiosteal sleeve was created with knife, boswell elevator and curved osteotome. The retropatellar fatpad was resected and the synovium in the suprapatellar pouch excised to visualize the anterior femoral cortex. Femoral preparation was performed via an intramedullary guide. Step drill allowed access into the femoral canal. The distal cutting guide was placed with 5? of valgus and 11 mm cut on the distal femur due to a 10?+ flexion contracture. Femur was sized using a anterior referencing guide in 3? of external rotation. This found have a best fit with the sizing noted above. The 4 in 1 cutting block was then placed, and the distal femur shaped accordingly. The box cut was then created and the trial implant inserted to confirm appropriate fit. We turned our attention to the proximal tibia. Extramedullary guide was utilized for cutting with the goal of being 90 degree cut from the mechanical axis of the tibia in the varus/valgus plane utilizing tibial crest as the primary alignment. Initially a 2 mm resection was performed from the medial tibial plateau. Ultimately, balancing was achieved in both flexion and extension in both varus and valgus. The knee was able to achieve full extension as well comfortably. The patella was initially measured and found have a thickness of 26 mm. It was resected back to approximately 14.5 mm. It was sized to be a best fit with as noted above. This was drilled, trial placed. All trials were placed and found to have an excellent stability and balance. At this stage, trial implants were removed, the knee was thoroughly irrigated with normal saline, and the cement was mixed. After irrigation, the knee was thoroughly dried, and cement placed, with the real tibial and femoral implants placed along with the patella. Trial poly spacer was placed and confirmed to have excellent range of motion and full extension, and the real poly spacer opened and inserted. All extra cement was removed, and a 3 min Betadine soak performed. Finally, a final irrigation round with normal saline was performed. Closure performed with 0 Vicryl and #0 Stratafix for the quad tendon/retinaculum. 2-0 Vicryl for the subcutaneous and 4-0 Stratafix for subcuticular closure. Dressings were applied and the patient was awoken from anesthesia after the tourniquet deflated and transferred the PACU in stable condition. A skilled certified anesthesiologist assistant was critical for this case to aid in patient positioning, tissue retraction, bone exposure, limb manipulation/positioning, patient safety, and closure. PLAN: 1. Weight bear as tolerated operative extremity. 2. 23 hr perioperative antibiotics. 3. Ice. 4. PT/OT consults for ambulation assistance/mobility education. 5. Social work consult for discharge planning. 6. DVT prophylaxis with at SCDs and aspirin twice daily.
--- NOTE | 2024-06-02 15:34 | W.ANESCHARGE ---
Anesthesia Charges Start Date/Time Anesthesia Start Date: 06/02/24 Anesthesia Start Time: 12:40 Stop Date/Time Anesthesia Stop Date: 06/02/24 Anesthesia Stop Time: 15:32
[2024-06-02] MEDS: HYDROmorphone 0.5 mg/0.5 ml inj IVP (17:39)
--- NOTE | 2024-06-02 18:50 | PC.NURSE ---
[id number]: The patient arrived to the floor drowsy, but alert and orientated. VSS on RA.. although noted to be bradycardic. The patient is noted to be sensitive and mention numbness in bilateral LE. The patient reported burning in his R knee and rated it a 5/10. PRN medication was given, the patient was noted to become lightheaded and dizzy shortly after... I laid the patient flat and his symptoms subsided. The patient is now resting comfortably, with plexi pulses on BLE. R knee dressing is CDI with ice pack on the site. Ate 75% of dinner, tolerated this well. Encouraged the patient to drink more PO fluids. Call light within reach. Luz Maria LAL BSN
--- NOTE | 2024-06-02 19:41 | P.IMCN_ITS ---
Date of Consult Patient: Sim Patient Consult date: 06/02/24 Requesting Physician: Orthopedics Primary Care Provider: BILLIE BLUE DO Consult Narrative Narrative: Brian Rae is a 64 year old male admitted for right total knee arthroplasty. Procedures performed by Dr. Dela Cruz today. No operative complications. He has requested consultation for postoperative medical management. Patient reports doing fairly well at this time he has some anterior knee pain which is manageable. He otherwise is feeling well. He reports preoperatively he was doing well. Preop physical did not identify any significant concerns regarding perioperative care. He has had no previous problems with surgery, anesthesia, bleeding or clotting. Postoperatively he has had sinus bradycardia with a rate of about 40. No previous cardiac history or bradycardia. He had a normal stress echo in October of 2022. Review of Systems Narrative: He reports longstanding and progressive symptoms of urinary frequency at night. He had a trial of Flomax which was not beneficial for him [facility] Medical History (Updated 06/02/24 @ 19:56 by Valentín Yee MD) Humerus fracture ?S42.309A - Unspecified fracture of shaft of humerus, unspecified arm, initial encounter for closed fracture (ICD-10) Prediabetes ?R73.03 - Prediabetes (ICD-10) Left inguinal hernia ?K40.90 - Unilateral inguinal hernia, without obstruction or gangrene, not specified as recurrent (ICD-10) History of hepatitis B ?Z86.19 - Personal history of other infectious and parasitic diseases (ICD- 10) BPH (benign prostatic hyperplasia) ?N40.0 - Benign prostatic hyperplasia without lower urinary tract symptoms (ICD-10) Post-traumatic arthritis of right ankle ?M19.171 - Post-traumatic osteoarthritis, right ankle and foot (ICD-10) Seasonal allergies ?J30.2 - Other seasonal allergic rhinitis (ICD-10) Hyperlipidemia ?E78.5 - Hyperlipidemia, unspecified (ICD-10) Bolus impaction of digestive tract GERD (gastroesophageal reflux disease) ?K21.9 - Gastro-esophageal reflux disease without esophagitis (ICD-10) Surgical History (Updated 06/02/24 @ 19:56 by Valentín Yee MD) History of arthroplasty of right knee ?Z96.651 - Presence of right artificial knee joint (ICD-10) History of open reduction and internal fixation (ORIF) procedure ?Z98.890 - Other specified postprocedural states (ICD-10) S/P laparoscopic hernia repair ?Z98.890 - Other specified postprocedural states (ICD-10) ?Z87.19 - Personal history of other diseases of the digestive system (ICD-10) Family History (Updated 06/02/24 @ 19:58 by Valentín Yee MD) Mother Cardiovascular disease Brother Cardiovascular disease Colon cancer Sister Colon cancer Leukemia Father Colon cancer Alcohol dependence Social History (Updated 06/02/24 @ 20:00 by Valentín Yee MD) Narrative: former smoker-1983. He lives with his lifelong partner, Mason, [facility]. House is split-level with 8 steps to get the main l evel and another 6 steps to get to the bedroom and bathroom. He has 4 cats and 3 dogs. He occasionally drinks beer. Remote history of smoking. Full code. Mason is healthcare power of environmental attorney What is your current living situation?: I presently have a place to live Problems where you live: no known problems In the past 12 months, utilities in danger of being shut off: no In the past 12 mos, have been you worried that your food would run out before you had money to buy more?: never true In the past 12 mos, the food you bought just didn't last and you didn't have money to buy more?: never true Highest level of school completed/degree received: 12th grade, no diploma Smoking Status: Former smoker What tobacco products do you use: cigarettes Smoking quit date/years: >15 years ago Do you use any of these nicotine containing products: None Second hand tobacco smoke exposure: No How often do you have a drink containing alcohol: 2-4 times a month How many standard drinks containing alcohol do you have on a typical day: 1 or 2 How often do you have six or more drinks on one occasion: Never AUDIT-C Alcohol total score: 2 Non-prescribed substance use: denies use Caffeine: Yes How often does anyone, including family, friends and others, physically hurt you : never How often does anyone, including family, friends and others, insult or talk down to you: never How often does anyone, including family, friends and others, threaten you with harm: never How often does anyone, including family, friends and others, scream or curse at you: never service: No Meds Home Medications and Allergies Home Medications ?Medication ?Instructions ?Recorded ?Confirmed ?Type atorvastatin 40 mg tablet 40 mg PO DAILY 07/14/22 06/02/24 History acetaminophen 500 mg tablet 1,000 mg PO Q6H PRN 04/15/24 06/02/24 History (Tylenol Extra Strength) cholecalciferol (vitamin D3) 50 50 mcg PO DAILY 04/15/24 06/02/24 History mcg (2,000 unit) capsule (Vitamin D3) Allergies Allergy/AdvReac Type Severity Reaction Status Date / Time No Known Drug Allergies Allergy Verified 04/15/24 13:13 Exam Narrative: Exam Narrative: He is alert and appears in no distress. Oropharynx is normal. Respirations are clear to auscultation. Cardiovascular: S1, S2, regular bradycardia. No murmur gallop or rub. Abdomen: Bowel sounds active. Abdomen is soft without tenderness or mass. Extremities without edema. Intact pulses and sensation and motion in both feet and ankles. Const: Vital Signs, click to edit/add: Vital Signs - 24 hr 06/02/24 12:06 06/02/24 12:22 06/02/24 15:30 Temperature 98.0 F 97.0 F L Pulse Rate 67 57 L 61 Respiratory Rate 16 16 14 Blood Pressure 136/78 120/74 136/75 Pulse Oximetry 98 99 95 Oxygen Delivery Me thod Room Air Nasal Cannula Room Air Oxygen Flow Rate 2 06/02/24 15:35 06/02/24 15:40 06/02/24 15:45 Temperature Pulse Rate 52 L 53 L 56 L Respiratory Rate 14 16 16 Blood Pressure 106/88 110/83 111/80 Pulse Oximetry 96 95 97 Oxygen Delivery Me thod Room Air Room Air Room Air Oxygen Flow Rate 06/02/24 15:50 06/02/24 15:55 06/02/24 16:00 Temperature 97.1 F L 96.0 F L Pulse Rate 52 L 51 L 45 L Respiratory Rate 16 16 16 Blood Pressure 116/80 122/76 113/56 L Pulse Oximetry 95 98 99 Oxygen Delivery Me thod Room Air Room Air Room Air Oxygen Flow Rate 06/02/24 16:15 06/02/24 16:30 06/02/24 16:45 Temperature 96.0 F L 96.2 F L 96.5 F L Pulse Rate 41 L 48 L 51 L Respiratory Rate 16 14 14 Blood Pressure 109/81 108/69 119/75 Pulse Oximetry 98 99 99 Oxygen Delivery Me thod Oxygen Flow Rate 06/02/24 16:45 06/02/24 17:00 06/02/24 17:30 Temperature 96.5 F L 97.0 F L Pulse Rate 48 L 45 L 55 L Respiratory Rate 16 16 Blood Pressure 128/81 134/81 Pulse Oximetry 99 99 Oxygen Delivery Me thod Oxygen Flow Rate 06/02/24 18:00 Temperature 97.0 F L Pulse Rate 53 L Respiratory Rate 16 Blood Pressure 116/68 Pulse Oximetry 100 Oxygen Delivery Me thod Oxygen Flow Rate Documenting provider has reviewed patient's vital signs: yes Assessment and Plan Assessment and plan (1) History of arthroplasty of right knee: Problem comment: Right knee arthroplasty performed 06/02/[address] Dela Cruz. No operative complications. Status: Acute (2) BPH (benign prostatic hyperplasia): Problem comment: Urinary frequency with no apparent benefit from tamsulosin Status: Acute Plan Patient admitted to the hospital for surgery, monitoring for complications and postoperative management of pain and therapy. Medically doing well. Will monitor for urinary retention. Anticipate discharge to home with his partner tomorrow if doing well. Total Time Spent Total Time Spent: Total time spent today is 40 minutes in coordination of care and discussing with patient postoperative care
[2024-06-02] MEDS: ONDANSETRON 2 MG/ML inj 4 MG IVP (19:59)
[2024-06-02] MEDS: SENNOSIDES 1 TAB TABLET 2 TAB PO (21:13)
[2024-06-02] MEDS: ASPIRIN 81 MG TABLET EC PO (21:13)
[2024-06-02] MEDS: OMEPRAZOLE 20 MG CAPSULE DR PO (21:15)
[2024-06-03] MEDS: OXYCODONE 5 MG TABLET PO ×2 (01:14→07:49)
[2024-06-03 02:40] VITALS: BP 119/75; PULSE 74; RESP 17; TEMP 36.7; O2SAT 97
[2024-06-03] MEDS: ACETAMINOPHEN 500 MG TABLET 1000 MG PO ×2 (02:54→09:00)
[2024-06-03] MEDS: CEFAZOLIN 2 GM in 0.9 % SODIUM CHLORIDE Mini-bag 100 ML IVPB (02:55)
[2024-06-03 06:38] LABS: Basophils Percent Auto 0.1 % (0.0-3.0); Eosinophils Percent Auto 0.1 % (0.0-7.0); Hematocrit 42.4 % (37.0-53.0); Immature Granulocytes Pct Auto 0.2 %; Lymphocytes Percent Auto 12.4 % (20-44); Mean Corpuscular HGB Conc 33 gm/dL (32-36); Mean Corpuscular Hemoglobin 31 pg (26-34); Mean Corpuscular Volume 93 fL (80-100); Monocytes Percent Auto 8.3 % (0.0-11.0); Neutrophils Percent Auto 78.9 % (42.0-72.0); Platelet Count* 230 K/uL (140-440); RDW Coefficient of Variation % 13.6 % (11.5-15.5); Red Blood Count 4.58 m/uL (4.30-5.90); White Blood Count* 13.28 K/uL (4.50-11.00)
[2024-06-03 06:42] LABS: Sodium* 132 mmol/L (135-149)
[2024-06-03 06:45] LABS: Creatinine* 0.8 mg/dL (0.5-1.5); Est. Creatinine Clearance* 77.39; Estimated Glomerular Filt Rate 98 ml/min
[2024-06-03 06:46] LABS: Blood Urea Nitrogen* 17 mg/dL (7-30)
--- NOTE | 2024-06-03 06:48 | PC.NURSE ---
Shift note ([id number]): Patient pleasant, alert and oriented. Ambulated with gait belt, rolling walker and assist of one. PRN Zofran given at 1999 for nausea and emesis. No further episodes. Tolerating regular diet. PRN Oxycodone given for right knee pain rated 4/10. Reported ?burning? discomfort in right knee incision; scheduled Tylenol effective. C/O some lightheadedness when sitting up in bed at beginning of shift. Denied any lightheadedness with ambulation at 2230 and has had no further complaints.?
[2024-06-03 06:50] LABS: Slide Review Reflex No
[2024-06-03 07:00] VITALS: BP 120/63; PULSE 69; PULSE 73; RESP 16; TEMP 36.6; O2SAT 95
--- NOTE | 2024-06-03 08:40 | PM.ORPN ---
Subjective Subjective Date Seen: 06/03/24 Principal diagnosis: Status postop day 1 right total knee arthroplasty Interval history: Patient reports doing okay. Feeling a little drowsy from the pain medication. Nausea this morning, given Zofran - he feels this was due to blood draw as he does not like needles. Pain managed with scheduled and PRN medications, ice. DVT prophylaxis: 81 mg aspirin by mouth twice daily, SCDs, walking. Reports some lightheadedness when up and moving. Denies fevers, chills, aches, vomiting, CP, SOB/[place]. States that he does not have a walker for home. Ortho Exam Narrative Exam Narrative: -Patient appears comfortable; no apparent acute distress -Alert and oriented times 3 -Operative knee mildly swollen; soft tissues supple; no ecchymosis; no erythematous streaking Warmth appropriate -Surgical dressing clean, dry, intact; no drainage -Bilateral calfs soft; no significant swelling, edema, tenderness, erythema, discoloration, warmth, or palpable cords -2+ DP/PT pulses, intact dermatomes and myotomes distally (5/5 strength) Const Vital Signs, click to edit/add: Vital Signs - 24 hr 06/02/24 12:06 06/02/24 12:22 06/02/24 15:30 Temperature 98.0 F 97.0 F L Pulse Rate 67 57 L 61 Pulse Rate [Pulse Oximeter] Respiratory Rate 16 16 14 Blood Pressure 136/78 120/74 136/75 Blood Pressure [Right Arm] Pulse Oximetry 98 99 95 Oxygen Delivery Method Room Air Nasal Cannula Room Air Oxygen Flow Rate 2 06/02/24 15:35 06/02/24 15:40 06/02/24 15:45 Temperature Pulse Rate 52 L 53 L 56 L Pulse Rate [Pulse Oximeter] Respiratory Rate 14 16 16 Blood Pressure 106/88 110/83 111/80 Blood Pressure [Right Arm] Pulse Oximetry 96 95 97 Oxygen Delivery Method Room Air Room Air Room Air Oxygen Flow Rate 06/02/24 15:50 06/02/24 15:55 06/02/24 16:00 Temperature 97.1 F L 96.0 F L Pulse Rate 52 L 51 L 45 L Pulse Rate [Pulse Oximeter] Respiratory Rate 16 16 16 Blood Pressure 116/80 122/76 113/56 L Blood Pressure [Right Arm] Pulse Oximetry 95 98 99 Oxygen Delivery Method Room Air Room Air Room Air Oxygen Flow Rate 06/02/24 16:15 06/02/24 16:30 06/02/24 16:45 Temperature 96.0 F L 96.2 F L 96.5 F L Pulse Rate 41 L 48 L 51 L Pulse Rate [Pulse Oximeter] Respiratory Rate 16 14 14 Blood Pressure 109/81 108/69 119/75 Blood Pressure [Right Arm] Pulse Oximetry 98 99 99 Oxygen Delivery Method Oxygen Flow Rate 06/02/24 16:45 06/02/24 17:00 06/02/24 17:30 Temperature 96.5 F L 97.0 F L Pulse Rate 48 L 45 L 55 L Pulse Rate [Pulse Oximeter] Respiratory Rate 16 16 Blood Pressure 128/81 134/81 Blood Pressure [Right Arm] Pulse Oximetry 99 99 Oxygen Delivery Method Oxygen Flow Rate 06/02/24 18:00 06/02/24 19:00 06/02/24 19:00 Temperature 97.0 F L 97.4 F L 97.4 F L Pulse Rate 53 L 52 L Pulse Rate [Pulse Oximeter] 52 L Respiratory Rate 16 16 16 Blood Pressure 116/68 117/83 Blood Pressure [Right Arm] 117/83 Pulse Oximetry 100 96 96 Oxygen Delivery Method Room Air Room Air Oxygen Flow Rate 06/02/24 19:55 06/02/24 21:08 06/02/24 22:00 Temperature 97.4 F L 97.5 F L Pulse Rate 60 67 68 Pulse Rate [Pulse Oximeter] Respiratory Rate 16 18 16 Blood Pressure 125/74 125/76 123/83 Blood Pressure [Right Arm] Pulse Oximetry 97 96 97 Oxygen Delivery Method Room Air Room Air Room Air Oxygen Flow Rate 06/02/24 22:24 06/02/24 23:00 06/02/24 23:00 Temperature 97.5 F L Pulse Rate Pulse Rate [Pulse Oximeter] 68 Respiratory Rate 16 16 Blood Pressure Blood Pressure [Right Arm] 123/83 Pulse Oximetry 96 97 97 Oxygen Delivery Method Room Air Room Air Oxygen Flow Rate 06/02/24 23:00 06/03/24 02:40 06/03/24 07:00 Temperature 98.0 F Pulse Rate 68 Pulse Rate [Pulse Oximeter] 74 Respiratory Rate 17 Blood Pressure Blood Pressure [Right Arm] 119/75 Pulse Oximetry 97 95 Oxygen Delivery Method Oxygen Flow Rate 06/03/24 07:00 06/03/24 07:00 06/03/24 07:00 Temperature 97.8 F Pulse Rate 73 Pulse Rate [Pulse Oximeter] 69 Respiratory Rate 16 16 Blood Pressure Blood Pressure [Right Arm] 120/63 Pulse Oximetry 95 95 Oxygen Delivery Method Room Air Room Air Oxygen Flow Rate Assessment and Plan Assessment and plan (1) History of arthroplasty of right knee: Problem details: Right knee arthroplasty performed 06/02/[address] Dela Cruz. No operative complications. Status: Acute (2) BPH (benign prostatic hyperplasia): Problem details: Urinary frequency with no apparent benefit from tamsulosin Status: Acute Plan - Complete 23 hour perioperative antibiotics. - PT/OT consult for education and assistance. - Social work consult for discharge planning - Prescribed analgesics as needed - DVT prophylaxis: 81 mg aspirin by mouth twice daily, walking, and SCDs - Written script provided for walker, which he should purchase at [facility] - Anticipation is for discharge to home with family/friends today 06/03/2024 if the patient remains medically stable, pain is controlled, and they are safe with mobilization.
[2024-06-03] MEDS: OMEPRAZOLE 20 MG CAPSULE DR PO (08:59)
[2024-06-03] MEDS: SENNOSIDES 1 TAB TABLET 2 TAB PO (08:59)
[2024-06-03] MEDS: ATORVASTATIN CALCIUM 40 MG TABLET PO (09:00)
[2024-06-03] MEDS: ASPIRIN 81 MG TABLET EC PO (09:01)
--- NOTE | 2024-06-03 11:02 | PC.NURSE ---
Pt discharged @ 1059 via wheelchair, accompanied by spouse. Back to home. Discharge papers reviewed and signed. Belonging form signed. Pt AxOx4 on discharge with mild nausea. Pt purchased standard walker. 3rd dose of abx omitted. Final room check complete.
== END 2024-06-03 10:59 | disposition home or self-care (01) ==
LOC: OR 11:11 → MEDSURG 11:13
PROVIDERS: PCP Student in an Organized Health Care Education/Training Program; Visit Provider Orthopaedic Surgery Sports Medicine
PROC: (CPT 27447; principal; 2024-06-02 13:00)
DX: M17.11 Unilateral primary osteoarthritis, right knee (principal); G89.18 Other acute postprocedural pain; R73.03 Prediabetes; K21.9 Gastro-esophageal reflux disease without esophagitis; N40.1 Benign prostatic hyperplasia with lower urinary tract symptoms; R35.0 Frequency of micturition; E78.5 Hyperlipidemia, unspecified; R42 Dizziness and giddiness; R11.0 Nausea
CPT/HCPCS: 27447; 01402; 36415; 64447; 64454; 73560; 76942; 82565; 84132; 84295; 84520; 85025; 93005; 97110; 97116; 97161; 97165; 97530; 97535; A9270; C1776; J0665; J0690; J1100; J1171; J2250; J2405; J2704; J3010; J7120

== ENCOUNTER 2024-07-17 14:30 | Outpatient (RCR) | payer MEDICARE, BC, SELFPAY ==
--- NOTE | 2024-05-26 17:29 | PT.OPEX ---
PT [facility] Outpatient Eval PT [facility] Outpatient Eval Start: 05/26/24 16:36 Freq: Status: Active Protocol: Document 05/26/24 17:18 GATO (Rec: 05/26/24 17:27 GATO [id number]) E-signed By Alcira Montoya DPT Physical Therapy Outpatient Evaluation Insurance Information Recert Due Date 08/24/24 Insurance Name Medicare B,[employer]/[place] [employer] [facility] Medical Diagnosis R knee OA R TKA 06/02/24 Treating Diagnosis R TKA 06/02/24, R knee pain, impaired R knee ROM, limited tolerance for extended standing/walking/stairs Subjective Subjective Patient reports chronic R knee pain leading up to R TKA scheduled for 06/02/24. Patient reports living in a multi level home with his partner. Partner is able to assist some. Patient reports having 3 dogs, 3 cats to care for at home. He has a cane to use after surgery, does not have a FWW. Patient states he is limited with lifting, extended standing/walking, and stairs secondary to knee pain . Date of Last Physician Visit 04/16/24 Date of Surgery (If applicable) 06/02/24 Current Work Status Retired Precautions Treatment Precautions/Contraindications OA, osteoporosis Assessment Assessment/Impression Patient is a 64 year old male with chronic R knee pain/OA leading up to R TKA scheduled for 06/02/24. Patient with R knee pain, impaired R knee ROM , limited tolerance for extended standing/walking/ stairs. States he lives in a multi level home with his partner. Partner is able to assist some after surgery. Patient does not have a FWW - will need one issued at hospital d/c. One stair to enter home, can hold onto door frame. 5 stairs, landing, 5 stairs with L railing to get up to main level. Bathroom and bedroom are on upper level , another 8 stairs with R railing. He has a walk in shower. Recommend shower chair and commode over toilet. Patient will consider equipment recommendations. Patient seen in PT today for pre-op session to provide education/information on upcoming TKA surgery, safety information/HO, equipment instruction including use of FWW, and instruction in TKA exercises. Handouts issued for exercises, patient to perform them leading up to surgery. Reviewed PT/OT plan during hospital stay and patient is scheduled for OP PT post op. Patient would benefit from skilled PT for pain/sx management, improved knee ROM, improved knee/LE mobility/strength, improved gait, balance/proprioception training, and establishment of HEP. Plan of Care Rehabilitation Potential Good Physical Therapy Goals 1. Patient will be educated in TKA pre/post-op safety, mobility, and exercises with HOs provided within one visit with patient returning to PT for post op treatment after TKA surgery . PT goals will be updated to TKA rehab goals when patient returns post op. Coordination/Communication With Referral Source Treatment Plan/Direct Interventions Gait Training,Manual Therapy, Therapeutic Exercises Frequency/Duration one pre-op session 2x/week post op Patient Will Be Discharged From Therapy Completion of LTG(s),Skills Plateau,Independent w/HEP, Independently Progressing Evaluation Billing Untimed Code Treatment Minutes 48 Complexity Moderate Certification Information Initial Certification Date 05/26/24 Ending Certification Date 08/24/24 Provider Signature Required Yes Provider Signature Shows Agreement With POC & Medical Necessity Physician NPI Number Write NPI# Here Physician Comment/Change : Physician Signature & Date Requested Please Sign/Date Here
== END 2024-11-14 23:59 | disposition home or self-care (01) ==
PROVIDERS: PCP Student in an Organized Health Care Education/Training Program; Visit Provider Orthopaedic Surgery Sports Medicine
DX: M17.11 Unilateral primary osteoarthritis, right knee (principal); Z96.651 Presence of right artificial knee joint; Z51.89 Encounter for other specified aftercare
CPT/HCPCS: 97110; 97140; 97162; 97164